=== PATIENT | male | born 1960 | race Hispanic/Latino ===

== ENCOUNTER 2017-03-11 09:13 | Emergency (ER) | payer OTHER ==
[2017-03-11] MEDS ORDERED: Lidocaine 1% (PF) 30 ML VIAL ONE (09:52)
[2017-03-11] MEDS ORDERED: Adacel (T-DAP) 0.5 ML VIAL ONE (10:15)
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
[2017-03-11] MEDS ORDERED: Amoxicillin/Potassium Clav 875 MG TAB ONE (11:31)
== END 2017-03-11 11:43 | disposition home or self-care (01) ==
LOC: EEVIPCON 09:13 → ERS 09:13
DX: S01.511A Laceration without foreign body of lip, initial encounter (principal); Y08.89XA Assault by other specified means, initial encounter
CPT/HCPCS: 12051; 70450; 72125; 90471; 90715; J2001